=== PATIENT | male | born 1965 | race Caucasian/White ===

== ENCOUNTER 2023-10-16 18:48 | Emergency (ER) | payer OTHER, SELFPAY ==
[2023-10-16 18:50] VITALS: BP 152/85; PULSE 60; RESP 15; TEMP 36.7; O2SAT 96; BMI 25.3
[2023-10-16] MEDS: Ibuprofen 600 MG Tablet PO (19:48)
[2023-10-16] MEDS: Diphth,Pertuss(Acell),Tet Vac 0.5 ML Vial IM (19:48)
--- NOTE | 2023-10-16 20:00 | RAD_ITS ---
EXAM: XR RIGHT FEMUR, 2 VIEWS CLINICAL INDICATION: Injury/Pain TECHNIQUE: Frontal and lateral views of the right femur. COMPARISON: No relevant prior studies available. FINDINGS: BONES/JOINTS: Unremarkable. No acute fracture. No subluxation. Normal alignment. Preservation of the joint space. No sclerotic or destructive changes observed. SOFT TISSUES: Unremarkable. No soft tissue swelling or gas. No radiopaque foreign body. RAD/Femur Min 2 Views IMPRESSION: Negative right femur x-rays. Electronically Signed: Faustino Johns MD at 20:38 EDT ,
--- NOTE | 2023-10-16 20:10 | EDS_ITS ---
HPI History of Present Illness Chief Complaint: Foreign Body Informant: patient Narrative Narrative: Patient is a 58-year-old male with history of hypertension presenting for evaluation of foreign body in his right thigh. Patient was at a shooting competition in [place] earlier today when a piece of scrap male struck his inner right thigh. He feels a piece of metal still in his leg and is bothering him. Denies any other injuries. Denies any other complaints. Is not on any blood thinners. Tetanus Immunization: Unknown PFSH [facility] Home Medications ?Medication ?Instructions ?Recorded ?Last Taken ?Type bisoprolol 5 1 tab PO DAILY 03/11/16 Unknown History mg-hydrochlorothiazide 6.25 mg tablet esomeprazole magnesium 40 mg 40 mg PO 05/30/23 Unknown History capsule,delayed release naproxen sodium 220 mg tablet 220 mg PO BID PRN 05/30/23 Unknown History (Aleve) Allergy/AdvReac Type Severity Reaction Status Date / Time Penicillins (PCN) Allergy Intermediate NEEDS Verified 10/16/23 18:49 FOLLOW-UP Surgical History History of hip surgery Social History household members: family Smoking Status: Never smoker alcohol intake: current alcohol intake frequency: a few times a week ROS ROS ED Constitutional Constitutional ED: Denies chills or fever(s) Gastrointestinal Gastrointestinal: Denies nausea or vomiting Musculoskeletal Musculoskeletal: Reports other Details: Right thigh pain Integumentary Reports Abrasions Neurologic Neurologic: Denies paresthesias or weakness Hematologic/Lymphatic Hematologic/Lymphatic: Denies easy bleeding or easy bruising EXAM Physical Exam Const Vital Signs: 10/16/23 18:50 10/16/23 19:12 10/16/23 21:50 Temperature 98.1 F 98.1 F Temperature Source Temporal Pulse Rate 60 68 Respiratory Rate 15 16 Respiratory Effort Normal Non-Labored Respiratory Pattern Normal Blood Pressure 152/85 H 132/66 H Blood Pressure Mean 107 88 Pulse Ox 96 98 Oxygen Delivery Method Room Air Positive well nourished and well developed General Appearance ED: well developed and NAD Neck full ROM Chest Wall inspection of chest normal Resp normal respiratory effort Extremity normal to inspection and full ROM Extremity Narrative: No deformity of the right lower extremity, normal range of motion Neuro oriented x3, moves all extremities and no sensory deficits noted Psych mental status grossly normal Skin Skin Narrative: Patient has a small abrasion of the mid right medial thigh and approximately 4 cm posterior lateral to that there is a palpable foreign body underneath the skin with no overlying skin changes. This is consistent with a puncture wound and a retained foreign body. MDM MDM MDM Narrative Medical decision making narrative: Patient is evaluated for wound to his right thigh.Patient appears nontoxic in no acute distress. He is neurovascularly intact. X-ray obtained of the femur reviewed by myself does show a foreign body in the superficial soft tissue. No other form eyes appreciated. No fracture present. Patient is given dose of Motrin in the emergency room and tetanus is updated. Patient is requesting that I remove the foreign body. Discussed risk and benefits including of having accessible attempt and increased soft tissue damage with an attempt to remove. He would like to proceed. All bedside ultrasound utilized which does show the foreign body that seems to be about 2 mm deep. Area is anesthetized with 1% lidocaine with epinephrine injected subcutaneously over the foreign body. #11 blade used to make a 1 cm horizontal incision. Hemostat used to bring the foreign body closer to the surface and then the bevel of an 18-gauge needle is used to remove the foreign body the remainder of the way. Patient tolerated procedure well with no immediate complications. A localized pressure applied to stop bleeding and Steri-Strip is applied to the incision. Will be allowed to heal by secondary intent as there was a foreign body there. Do not think patient requires prophylactic antibiotics. Patient discharged home in stable and improved condition. Radiography Diagnostic Testing: Clinical Impression(s) from Imaging Studies Femur X-Ray 10/16/23 20:00 IMPRESSION: Negative right femur x-rays. Electronically Signed: Faustino Johns MD at 20:38 EDT Reading Location ID and State: [facility] / [place] , Service support , Discharge Plan Triage Chief Complaint: Foreign Body ED Provider: Aga Greco Dx/Rx/DC Orders Clinical Impression: Acute foreign body of left thigh Instructions: ED Foreign Body Soft Tissue Prescriptions: No Action esomeprazole magnesium 40 mg capsule,delayed release(DR/EC) 40 mg PO Patient Comments: take 1 capsule by mouth once daily naproxen sodium [Aleve] 220 mg tablet 220 mg PO BID PRN bisoprolol-hydrochlorothiazide 1 TAB tablet 1 tab PO DAILY Primary Care Provider: Zi Valenzuela Referrals: Zi Valenzuela MD [Primary Care Provider] - Print Language: Pashto Disposition Disposition: Home, Self Care Discharge Date/Time: 10/16/23 21:51
[2023-10-16] MEDS: Lidocaine 1% /Epi 1:100 (20ml) 20 ML Vial INFILT (21:47)
[2023-10-16 21:50] VITALS: BP 132/66; PULSE 68; RESP 16; TEMP 36.7; O2SAT 98
== END 2023-10-16 21:51 | disposition home or self-care (01) ==
PROVIDERS: Emergency Provider Emergency Medicine; PCP Family Medicine; Visit Provider Emergency Medicine
DX: S70.352A Superficial foreign body, left thigh, initial encounter (principal); I10 Essential (primary) hypertension; Z23 Encounter for immunization; W45.8XXA Other foreign body or object entering through skin, initial encounter
CPT/HCPCS: 10120; 73552; 90471; 90715; 99284